=== PATIENT | female | born 1930 | race Caucasian/White ===

== ENCOUNTER 2017-07-17 13:54 | Emergency (ER) | payer MEDICAID, MEDICARE ==
[~2017-07-17] VITALS: Ht 162.6 cm; Wt 67.0 kg
[~2017-07-17 13:54] MED LIST: BACT800T5 PO; PHEN1TAB49 PO; PRAV40TA PO; ST JTAB PO
[2017-07-17 13:59] VITALS: BP 147/77; PULSE 90; RESP 16; TEMP 98.1; O2SAT 96
[2017-07-17] MEDS ORDERED: ASPI81CH6 CHEW (14:15)
[2017-07-17] MEDS ORDERED: ALEV220T14 PO (14:15)
[2017-07-17] MEDS ORDERED: PRAV40TA2 PO (14:15)
[2017-07-17 14:24] LABS: BLOOD, URINE MOD (NEG); GLUCOSE,URINE NEG (NEG); KETONE, URINE NEG (NEG); NITRITE,URINE POS (NEG)
[2017-07-17 14:36] LABS: METHOD OF COLLECTION VOIDED; URINE COLOR YELLOW (YELLW/STRAW); WBC, URINE INNUM /hpf (0-5)
[2017-07-17 14:37] LABS: BACTERIA, URINE MANY /hpf; COMMENT (UR) CULTURE INDICATED; CULTURE IF INDICATED CULTURE INDICATED; RBC, URINE 0-3 /hpf (0-3); SQUAMOUS EPITHELIAL CELL URINE >8 /hpf (0-5)
[2017-07-17] MEDS ORDERED: ZOFR4TAB3 SL (14:46)
[2017-07-17] MEDS ORDERED: BACT800T5 PO (14:46)
--- NOTE | 2017-07-17 14:46 | PD ---
HPI Chief Complaint: Complaint Time Seen by Provider: 14:22 Travel History International Travel<30 days: No Contact w/Intl Traveler<30days: No Traveled to known affect area: No History of Present Illness HPI This 87-year-old female is complaining of right flank pain. She's been having the pain for about a day. She has a history of urinary tract infections. She is not aware of fever. She has had some nausea. There has not been any vomiting or diarrhea. She has no numbness or tingling PFSH Past Medical History Arthritis: Yes Blood Disorders: No Anxiety: No Depression: No Cancer: No High Cholesterol: Yes Diabetes: No Diminished Hearing: Yes Genitourinary: No Implanted Vascular Access Dvce: No Musculoskeletal: Yes Neurologic: Yes Psychiatric: No Reproductive: No Respiratory: No Thyroid Disease: No Tetanus Vaccination: Unknown ?: Not Menopausal: Yes Past Surgical History Gynecologic Surgery: Yes (HYSTERECTOMY) Hysterectomy: Yes Other Surgery: Yes (ENDARTECTOMY) Social History Alcohol Use: No Tobacco Use: No Substance Use: No Allergies-Medications (Allergen,Severity, Reaction): Coded Allergies: No Known Allergies (Verified Adverse Reaction, Unknown, 07/17/17) Reported Meds & Prescriptions Reported Meds & Active Scripts Active Reported Aleve Arthritis (Naproxen Sodium) 220 Mg Tab 220 Mg PO BID Pravastatin 40 Mg Tab 40 Mg PO DAILY Aspirin Low Dose (Aspirin) 81 Mg Chew 81 Mg CHEW DAILY Review of Systems General / Constitutional: No: Fever, Chills Eyes: No: Diploplia, Blurred Vision HENT: No: Headaches, Vertigo Respiratory: No: Cough, Shortness of Breath Gastrointestinal: Positive: Nausea, No: Vomiting, Diarrhea Genitourinary: Positive: Urgency, Frequency, Flank Pain Musculoskeletal: No: Myalgias, Arthralgias Skin: No Rash, No Itching Endocrine: No: Heat Intolerance, Cold Intolerance Hematologic/Lymphatic: No: Easy Bruising Physical Exam Narrative GENERAL: Well-developed female SKIN: Focused skin assessment warm/dry. HEAD: Atraumatic. Normocephalic. EYES: Pupils equal and round. No scleral icterus. No injection or drainage. ENT: No nasal bleeding or discharge. Mucous membranes pink and moist. NECK: Trachea midline. No JVD. CARDIOVASCULAR: Regular rate and rhythm. No murmur appreciated. RESPIRATORY: No accessory muscle use. Clear to auscultation. Breath sounds equal bilaterally. GASTROINTESTINAL: Abdomen soft, non-tender, nondistended. Hepatic and splenic margins not palpable. There is some right CVA tenderness NEUROLOGICAL: Awake and alert. No obvious cranial nerve deficits. Motor grossly within normal limits. Normal speech. PSYCHIATRIC: Appropriate mood and affect; insight and judgment normal. Data Data Last Documented VS Vital Signs Date Time Temp Pulse Resp B/P (MAP) Pulse Ox O2 Delivery O2 Flow Rate FiO2 07/17/17 14:12 16 07/17/17 13:59 98.1 90 147/77 (100) 96 Orders Orders Urinalysis - C+S If Indicated (07/17/17 14:03) Urine Culture (07/17/17 14:07) Labs Laboratory Tests Test 07/17/17 14:07 Urine Collection Type VOIDED Urine Color YELLOW Urine Turbidity CLEAR Urine pH 6.0 Urine Specific [place] 1.023 Urine Protein TRACE mg/dL Urine Glucose (UA) NEG mg/dL Urine Ketones NEG mg/dL Urine Occult Blood MOD Urine Nitrite POS Urine Bilirubin NEG Urine Leukocyte Esterase MOD Urine RBC 0-3 /hpf Urine WBC INNUM /hpf Urine WBC Clumps FEW Urine Squamous Epithelial Cells >8 /hpf Urine Bacteria MANY /hpf Microscopic Urinalysis Comment CULTURE INDICATED MDM Medical Decision Making Medical Screen Exam Complete: Yes Emergency Medical Condition: Yes Medical Record Reviewed: Yes Differential Diagnosis Differential includes musculoskeletal pain, UTI, renal colic Narrative Course Urine shows innumerable white cells with minimal red cells consistent with urinary tract infection Diagnosis Primary Impression: Urinary tract infection Qualified Codes: N39.0 - Urinary tract infection, site not specified Scripts Ondansetron Odt (Zofran Odt) 4 Mg Tab 4 MG SL Q6HR Y for Nausea/Vomiting, #6 TAB 0 Refills Prov: Rainer Johnson MD 07/17/17 Sulfamethoxazole-Trimethoprim (Bactrim DS) 800-160 Mg Tab 1 TAB PO BID for Infection, #20 TAB 0 Refills Prov: Rainer Johnson MD 07/17/17 Disposition: 01 DISCHARGE HOME Condition: Stable Rainer Johnson MD Jul 17, 2017 14:46
== END 2017-07-17 15:00 | disposition home or self-care (01) ==
LOC: PHED 13:54
DX: N39.0 Urinary tract infection, site not specified (principal); B96.20 Unspecified Escherichia coli [E. coli] as the cause of diseases classified elsewhere; E78.00 Pure hypercholesterolemia, unspecified
CPT/HCPCS: 81001; 87077; 87086; 87186; 99284

== ENCOUNTER 2017-07-22 14:15 | Emergency (ER) | payer MEDICARE ==
[~2017-07-22] VITALS: Ht 165.1 cm; Wt 68.0 kg
[~2017-07-22 14:15] MED LIST changes: +ALEV220T14 PO; +ASPI81CH6 CHEW; -PHEN1TAB49 PO; -PRAV40TA PO; +PRAV40TA2 PO; -ST JTAB PO; +ZOFR4TAB3 SL
[2017-07-22 14:27] VITALS: BP 161/76; PULSE 80; RESP 16; TEMP 98.1; O2SAT 96
[2017-07-22] MEDS ORDERED: PRED20 PO (15:03)
[2017-07-22] MEDS ORDERED: ACYC800T PO (15:03)
--- NOTE | 2017-07-22 15:03 | PD ---
Data Data Last Documented VS Orders Orders Ed Discharge Order (07/22/17 15:04) MDM Supervised Visit with BRITNEY: Yes Narrative Course I, Dr. Rosa, have reviewed the advance practice practitioner's documentation and am in agreement, met with the patient face to face, made the diagnosis, and the medical decision making was done by me. *My assessment and Findings: Patient seen and examined by me in addition to Hanh RED. Fairly classic shingles eruption on the right flank, fortunately for the patient and his not painful for her. We placed on prednisone and acyclovir. Diagnosis Primary Impression: Shingles rash Med/Other Pt SpecificInfo: Prescription(s) given Scripts Prednisone (Prednisone) 20 Mg Tab 60 MG PO DAILY for 5 Days, #15 TAB 0 Refills Prov: Augie Rosa MD 07/22/17 Acyclovir (Acyclovir) 800 Mg Tab 800 MG PO 5 TIMES A DAY for Mgmt Viral Infection for 7 Days, TAB 0 Refills Prov: Augie Rosa MD 07/22/17 Disposition: 01 DISCHARGE HOME Condition: Stable Augie Rosa MD Jul 22, 2017 15:03
--- NOTE | 2017-07-22 15:05 | PD ---
HPI Chief Complaint: Musculoskeletal Complaint Time Seen by Provider: 14:34 Travel History International Travel<30 days: No Contact w/Intl Traveler<30days: No Traveled to known affect area: No History of Present Illness HPI 87-year-old female presents emergency department for evaluation of a rash to her lower back area. She states the rash is first noticed yesterday. She denies any pain associated with the rash. She denies any fever, chills, malaise , abdominal pain, nausea, vomiting, diarrhea. She denies any history of shingles. PFSH Past Medical History Arthritis: Yes Blood Disorders: No Anxiety: No Depression: No Cancer: No High Cholesterol: Yes Diabetes: No Diminished Hearing: Yes Genitourinary: No Implanted Vascular Access Dvce: No Musculoskeletal: Yes Neurologic: Yes Psychiatric: No Reproductive: No Respiratory: No Thyroid Disease: No Influenza Vaccination: No Menopausal: Yes Past Surgical History Gynecologic Surgery: Yes (HYSTERECTOMY) Hysterectomy: Yes Other Surgery: Yes (ENDARTECTOMY) Social History Alcohol Use: No Tobacco Use: No Substance Use: No Allergies-Medications (Allergen,Severity, Reaction): Coded Allergies: No Known Allergies (Verified Adverse Reaction, Unknown, 07/22/17) Reported Meds & Prescriptions Reported Meds & Active Scripts Active Prednisone 20 Mg Tab 60 Mg PO DAILY 5 Days Acyclovir 800 Mg Tab 800 Mg PO 5 TIMES A DAY 7 Days Zofran Odt (Ondansetron Odt) 4 Mg Tab 4 Mg SL Q6HR PRN Bactrim DS (Sulfamethoxazole-Trimethoprim) 800-160 Mg Tab 1 Tab PO BID Reported Aleve Arthritis (Naproxen Sodium) 220 Mg Tab 220 Mg PO BID Aspirin Low Dose (Aspirin) 81 Mg Chew 81 Mg CHEW DAILY Review of Systems Except as stated in HPI: all other systems reviewed are Neg Physical Exam Narrative GENERAL: Well-nourished, well-developed 87-year-old female patient in no acute distress. Nontoxic-appearing. Resting comfortably on the stretcher conversing with her daughter at bedside. SKIN: Right lateral blotchy erythematous vesicular rash noted extending from the L1-L5 dermatome and wrapping around to the right hip. HEAD: Normocephalic. Atraumatic. EYES: No scleral icterus. No injection or drainage. NECK: Supple, trachea midline. No JVD or lymphadenopathy. CARDIOVASCULAR: Regular rate and rhythm without murmurs, gallops, or rubs. RESPIRATORY: Breath sounds equal bilaterally. No accessory muscle use. GASTROINTESTINAL: Abdomen soft, non-tender, nondistended. MUSCULOSKELETAL: No cyanosis, or edema. BACK: Nontender without obvious deformity. No CVA tenderness. Data Data Last Documented VS Vital Signs Date Time Temp Pulse Resp B/P (MAP) Pulse Ox O2 Delivery O2 Flow Rate FiO2 07/22/17 14:27 98.1 80 16 161/76 (104) 96 Orders Orders Ed Discharge Order (07/22/17 15:04) [facility] Medical Decision Making Medical Screen Exam Complete: Yes Emergency Medical Condition: Yes Differential Diagnosis Differential diagnoses include but not limited to shingles, contact dermatitis, the lightest, dermatitis herpetiformis Narrative Course 87 year female presents emergency department for evaluation of a rash to her right lateral lower back extending from the L1 to L5 dermatome and wrapping around to the right hip. She states the rash started yesterday. Patient presents with her daughter. Patient denies any fever, chills, malaise. Patient is eating and drinking properly. Patient is well-appearing. Patient denies any pain associated with rash. The rash presents with classic shingles upon assessment and physical exam. Dr. Rosa was called to the patient's bedside to confirm my assessment due to the fact that the patient has no pain. Dr. Rosa agrees with diagnosis and the patient is discharged home with acyclovir and prednisone. Patient instructed to return the emergency Department with any worsening condition but otherwise follow up with her primary care. Diagnosis Primary Impression: Shingles Qualified Codes: B02.9 - Zoster without complications Referrals: Primary Care Physician Patient Instructions: General Instructions, Shingles (ED) Additional Instructions: Please return to emergency department if your symptoms return or worsen. Follow up with your primary care provider. Take medications as prescribed. Keep rash clean and dry. Med/Other Pt SpecificInfo: Prescription(s) given Scripts Prednisone (Prednisone) 20 Mg Tab 60 MG PO DAILY for 5 Days, #15 TAB 0 Refills Prov: Augie Rosa MD 07/22/17 Acyclovir (Acyclovir) 800 Mg Tab 800 MG PO 5 TIMES A DAY for Mgmt Viral Infection for 7 Days, TAB 0 Refills Prov: Augie Rosa MD 07/22/17 Disposition: 01 DISCHARGE HOME Condition: Stable Hanh Jeff Jul 22, 2017 15:05
== END 2017-07-22 15:15 | disposition home or self-care (01) ==
LOC: PHEFT 14:15
DX: B02.9 Zoster without complications (principal); E78.00 Pure hypercholesterolemia, unspecified
CPT/HCPCS: 99284

== ENCOUNTER 2017-08-05 13:33 | Emergency (ER) | payer MEDICARE ==
[~2017-08-05] VITALS: Ht 162.6 cm; Wt 75.0 kg
[~2017-08-05 13:33] MED LIST changes: +ACYC800T PO; -PRAV40TA2 PO; +PRED20 PO
[2017-08-05 13:41] VITALS: BP 144/68; PULSE 82; RESP 18; TEMP 97.9; O2SAT 96
--- NOTE | 2017-08-05 13:54 | PD ---
HPI Chief Complaint: Syncope/Near-Syncope Time Seen by Provider: 13:51 Travel History International Travel<30 days: No Contact w/Intl Traveler<30days: No Traveled to known affect area: No History of Present Illness HPI This 87-year-old female is brought by paramedics. She was in [facility] and her daughter. Her daughter says that she just started staring off and appeared to be staring through her. She appeared somewhat incoherent for a couple of minutes. The daughter was able to get her to the ground. She has since made a recovery and appears fairly normal now. She has a history of stroke in the past. She does take baby aspirin daily. She has had a left carotid endarterectomy she recently was treated for urinary tract infection. She has also developed some shingles in the right lower lumbar dermatome. She has been having some pain in the right leg going down to the knee. PFSH Past Medical History Arthritis: Yes Blood Disorders: No Anxiety: No Depression: No Cancer: No High Cholesterol: Yes Diabetes: No Diminished Hearing: Yes Genitourinary: No Implanted Vascular Access Dvce: No Musculoskeletal: Yes Neurologic: Yes Psychiatric: No Reproductive: No Respiratory: No Thyroid Disease: No Influenza Vaccination: No ?: Not Menopausal: Yes Past Surgical History Gynecologic Surgery: Yes (HYSTERECTOMY) Hysterectomy: Yes Other Surgery: Yes (ENDARTECTOMY) Social History Alcohol Use: No Tobacco Use: No Substance Use: No Allergies-Medications (Allergen,Severity, Reaction): Coded Allergies: No Known Allergies (Verified Adverse Reaction, Unknown, 08/05/17) Reported Meds & Prescriptions Reported Meds & Active Scripts Active Zofran Odt (Ondansetron Odt) 4 Mg Tab 4 Mg SL Q6HR PRN Reported Aleve Arthritis (Naproxen Sodium) 220 Mg Tab 220 Mg PO BID Aspirin Low Dose (Aspirin) 81 Mg Chew 81 Mg CHEW DAILY Review of Systems Except as stated in HPI: all other systems reviewed are Neg General / Constitutional: No: Fever, Chills Eyes: No: Diploplia HENT: No: Headaches Cardiovascular: No: Chest Pain or Discomfort, Palpitations Respiratory: No: Cough Gastrointestinal: No: Nausea, Vomiting Genitourinary: No: Urgency, Frequency Musculoskeletal: Positive: Myalgias, Pain (right leg) Skin: Positive Rash Neurologic: No: Weakness, Dizziness Physical Exam Narrative GENERAL: Well-developed female SKIN: Focused skin assessment warm/dry. There is a rash consistent with shingles in the right lower quadrant HEAD: Atraumatic. Normocephalic. EYES: Pupils equal and round. No scleral icterus. No injection or drainage. ENT: No nasal bleeding or discharge. Mucous membranes pink and moist. NECK: Trachea midline. No JVD. CARDIOVASCULAR: Regular rate and rhythm. No murmur appreciated. RESPIRATORY: No accessory muscle use. Clear to auscultation. Breath sounds equal bilaterally. GASTROINTESTINAL: Abdomen soft, non-tender, nondistended. Hepatic and splenic margins not palpable. MUSCULOSKELETAL: No obvious deformities. No clubbing. No cyanosis. No edema. NEUROLOGICAL: Awake and alert. No obvious cranial nerve deficits. Motor grossly within normal limits. Normal speech. PSYCHIATRIC: Appropriate mood and affect; insight and judgment normal. Data Data Last Documented VS Vital Signs Date Time Temp Pulse Resp B/P (MAP) Pulse Ox O2 Delivery O2 Flow Rate FiO2 08/05/17 14:52 73 16 125/86 (99) 97 Room Air 08/05/17 13:41 97.9 Orders Orders Electrocardiogram (08/05/17 13:51) Complete Blood Count With Diff (08/05/17 13:51) Comprehensive Metabolic Panel (08/05/17 13:51) Prothrombin Time / Inr (Pt) (08/05/17 13:51) Act Partial Throm Time (Ptt) (08/05/17 13:51) Urinalysis - C+S If Indicated (08/05/17 13:51) Magnesium (Mg) (08/05/17 13:51) Ct Brain W/O Iv Contrast(Rout) (08/05/17 13:51) Urine Culture (08/05/17 14:41) Labs Laboratory Tests Test 08/05/17 14:10 08/05/17 14:41 White Blood Count 8.6 TH/MM3 Red Blood Count 4.67 MIL/MM3 Hemoglobin 13.6 GM/DL Hematocrit 42.3 % Mean Corpuscular Volume 90.5 FL Mean Corpuscular Hemoglobin 29.2 PG Mean Corpuscular Hemoglobin Concent 32.2 % Red Cell Distribution Width 13.1 % Platelet Count 258 TH/MM3 Mean Platelet Volume 7.4 FL Neutrophils (%) (Auto) 72.4 % Lymphocytes (%) (Auto) 16.8 % Monocytes (%) (Auto) 8.2 % Eosinophils (%) (Auto) 1.8 % Basophils (%) (Auto) 0.8 % Neutrophils # (Auto) 6.1 TH/MM3 Lymphocytes # (Auto) 1.5 TH/MM3 Monocytes # (Auto) 0.7 TH/MM3 Eosinophils # (Auto) 0.2 TH/MM3 Basophils # (Auto) 0.1 TH/MM3 CBC Comment DIFF FINAL Differential Comment Prothrombin Time 10.5 SEC Prothromb Time International Ratio 1.0 RATIO Activated Partial Thromboplast Time 23.1 SEC Blood Urea Nitrogen 17 MG/DL Creatinine 0.84 MG/DL Random Glucose 112 MG/DL Total Protein 7.2 GM/DL Albumin 3.4 GM/DL Calcium Level 8.8 MG/DL Magnesium Level 2.3 MG/DL Alkaline Phosphatase 73 U/L Aspartate Amino Transf (AST/SGOT) 17 U/L Alanine Aminotransferase (ALT/SGPT) 15 U/L Total Bilirubin 0.9 MG/DL Sodium Level 139 MEQ/L Potassium Level 3.8 MEQ/L Chloride Level 104 MEQ/L Carbon Dioxide Level 26.6 MEQ/L Anion Gap 8 MEQ/L Estimat Glomerular Filtration Rate 64 ML/MIN Urine Collection Type CLEAN CATCH Urine Color YELLOW Urine Turbidity SLIGHTY CLOUDY Urine pH 5.5 Urine Specific [place] 1.026 Urine Protein 30 mg/dL Urine Glucose (UA) NEG mg/dL Urine Ketones 40 mg/dL Urine Occult Blood NEG Urine Nitrite NEG Urine Bilirubin NEG Urine Leukocyte Esterase MOD Urine RBC 0-3 /hpf Urine WBC 15-19 /hpf Urine Squamous Epithelial Cells 0-5 /hpf Urine Transitional Epithelial Cells 0-5 /hpf Urine Renal Epithelial Cells 0-5 /hpf Urine Amorphous Sediment FEW Urine Bacteria OCC /hpf Urine Fine Granular Casts 3-5 /lpf Microscopic Urinalysis Comment CULTURE INDICATED MDM Medical Decision Making Medical Screen Exam Complete: Yes Emergency Medical Condition: Yes Medical Record Reviewed: Yes Differential Diagnosis Differential includes near-syncope, TIA, atypical seizure Narrative Course CT is read as negative. There are no acute abnormalities. 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 Lab work shows persistent UTI was just 15-19 white cells. Review of previous culture shows she had Escherichia coli sensitive to all antibiotics. I will prescribe Macrobid. This may have been a TIA. The patient is declining admission home. He'll be released to follow up medical doctor Diagnosis Primary Impression: Urinary tract infection Qualified Codes: N30.00 - Acute cystitis without hematuria Additional Impression: TIA (transient ischemic attack) Disposition: 01 DISCHARGE HOME Condition: Stable Rainer Johnson MD Aug 05, 2017 13:54
[2017-08-05 14:15] LABS: AUTOMATED NEUTROPHIL # 6.1 TH/MM3 (1.8-7.7); BASOPHIL # 0.1 TH/MM3 (0-0.2); BASOPHIL % 0.8 % (0.0-2.0); EOSINOPHIL # 0.2 TH/MM3 (0-0.4); EOSINOPHIL % 1.8 % (0.0-4.0); HEMATOCRIT 42.3 % (35.0-46.0); HEMOGLOBIN 13.6 GM/DL (11.6-15.3); LYMPH % 16.8 % (9.0-44.0); LYMPHOCYTE # 1.5 TH/MM3 (1.0-4.8); MEAN CELL VOLUME 90.5 FL (80.0-100.0); MEAN CORPUSCULAR HEMOGLOBIN 29.2 PG (27.0-34.0); MEAN CORPUSCULAR HGB CONC 32.2 % (32.0-36.0); MEAN PLATELET VOLUME 7.4 FL (7.0-11.0); MONO % 8.2 % (0.0-8.0); MONOCYTE # 0.7 TH/MM3 (0-0.9); NEUT % 72.4 % (16.0-70.0); PLATELET COUNT 258 TH/MM3 (150-450); RED BLOOD COUNT 4.67 MIL/MM3 (4.00-5.30); RED CELL DISTRIBUTION WIDTH 13.1 % (11.6-17.2); WHITE BLOOD COUNT 8.6 TH/MM3 (4.0-11.0)
[2017-08-05 14:23] LABS: CHLORIDE 104 MEQ/L (98-107); SODIUM (NA) 139 MEQ/L (136-145)
[2017-08-05 14:27] LABS: ALBUMIN 3.4 GM/DL (3.4-5.0); BICARBONATE 26.6 MEQ/L (21.0-32.0); BLOOD UREA NITROGEN 17 MG/DL (7-18); CALCIUM 8.8 MG/DL (8.5-10.1); GLUCOSE,RANDOM 112 MG/DL (74-106); MAGNESIUM 2.3 MG/DL (1.5-2.5); PROTHROMBIN TIME - PATIENT 10.5 SEC (9.8-11.6)
[2017-08-05 14:30] LABS: ALT (GPT) 15 U/L (10-53); AST (GOT) 17 U/L (15-37); CREATININE 0.84 MG/DL (0.50-1.00); GLOMERULAR FILTRATION RATE 64 ML/MIN (>89)
[2017-08-05 14:32] LABS: TOTAL BILIRUBIN ADULT 0.9 MG/DL (0.2-1.0); TOTAL PROTEIN 7.2 GM/DL (6.4-8.2)
[2017-08-05 14:33] LABS: ALKALINE PHOSPHATASE 73 U/L (45-117)
[2017-08-05 14:46] LABS: BLOOD, URINE NEG (NEG); GLUCOSE,URINE NEG (NEG); KETONE, URINE 40 mg/dL (NEG); NITRITE,URINE NEG (NEG); PH, URINE 5.5 (5.0-8.5); URINE LEUKOCYTE ESTERASE MOD (NEG)
[2017-08-05 14:52] VITALS: BP 125/86; PULSE 73; RESP 16; O2SAT 97
[2017-08-05 14:59] LABS: BILIRUBIN, URINE NEG (NEG)
[2017-08-05 15:00] LABS: URINE COLOR YELLOW (YELLW/STRAW)
[2017-08-05 15:01] LABS: AMORPHOUS SEDIMENT, URINE FEW; BACTERIA, URINE OCC /hpf; RBC, URINE 0-3 /hpf (0-3); RENAL EPITHELIAL CELLS 0-5 /hpf; SQUAMOUS EPITHELIAL CELL URINE 0-5 /hpf (0-5); TRANSITIONAL EPI CELLS, URINE 0-5 /hpf; WBC, URINE 15-19 /hpf (0-5)
--- NOTE | 2017-08-05 15:26 | RADRPT ---
EXAM DATE/TIME: 08/05/2017 14:35 [place] COMPARISON: No previous studies available for comparison. INDICATIONS : Sudden onset of altered mental status. RADIATION DOSE: 59.84 CTDIvol (mGy) MEDICAL HISTORY : Stroke. SURGICAL HISTORY : Carotid endarterectomy. Hysterectomy. ENCOUNTER: Initial ACUITY: 1 day PAIN SCALE: 0/10 LOCATION: cranial TECHNIQUE: Multiple contiguous axial images were obtained of the head. Using automated exposure control and adj ustment of the mA and/or kV according to patient size, radiation dose was kept as low as reasonably a chievable to obtain optimal diagnostic quality images. DICOM format image data is available electro nically for review and comparison. FINDINGS: CEREBRUM: The ventricles are normal for age. There is an old lacunar infarct at the right thalamus. No evidenc e of midline shift, mass lesion, hemorrhage or acute infarction. No extra-axial fluid collections ar e seen. POSTERIOR FOSSA: The cerebellum and brainstem are intact. The 4th ventricle is midline. The cerebellopontine angle i s unremarkable. EXTRACRANIAL: The visualized portion of the orbits is intact. SKULL: The calvaria is intact. No evidence of skull fracture. CONCLUSION: 1. No acute abnormalities seen. 2. 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 Saúl Samuels MD on August 05, 2017 at 15:24 Board Certified Radiologist. This report was verified electronically.
[2017-08-05] MEDS ORDERED: MACR100C2 PO (15:36)
[2017-08-05] MEDS ORDERED: GABA300C5 PO (15:44)
--- NOTE | 2017-08-05 22:10 | EKG ---
Date Performed: 08/05/2017 Time Performed: 13:58:33 PTAGE: 87 years EKG: Sinus rhythm WITH SINUS ARRHYTHMIA POSSIBLE RIGHT VENTRICULAR CONDUCTION DELAY MODERATE VOLTAGE CRITERIA FOR LVH, CONSIDER NORMAL VARIANT BORDERLINE ECG PREVIOUS TRACING : 11/05/2009 16.11 Compared to the previous tracing, now with criteria for pos sible LVH DOCTOR: Geovani Stout Interpretating Date/Time 08/05/2017 22:08:30
== END 2017-08-05 15:56 | disposition home or self-care (01) ==
LOC: PHED 13:33
DX: N30.00 Acute cystitis without hematuria (principal); G45.9 Transient cerebral ischemic attack, unspecified; R94.31 Abnormal electrocardiogram [ECG] [EKG]; Z79.82 Long term (current) use of aspirin
CPT/HCPCS: 70450; 80053; 81001; 83735; 85025; 85610; 85730; 87086; 93005

== ENCOUNTER 2018-03-20 08:16 | Observation (INO) ==
--- NOTE | 2018-03-20 08:27 | ED ---
HPI General Chief complaint: Nausea/Vomiting/Diarrhea Stated complaint: Evac/General weakness Time Seen by Provider: 03/20/18 08:20 Source: EMS Mode of arrival: EMS Limitations: no limitations History of Present Illness HPI narrative: 88yo F was brought in by [facility] for generalized weakness. Pt called her daughter today because she was feeling weak and had nausea and vomiting. The dried vomit on patient's shirt appears dark brown/black. [place] sob while vomiting but not anymore. +Increased urinary frequency. Pt denies any fever, chest pain, abdominal pain, diarrhea, focal weakness or numbness. Related Data Home Medications Medication Instructions Recorded Confirmed aspirin [[id number]] 81 mg PO DAILY 03/20/18 03/20/18 pravastatin 40 mg PO HS 03/20/18 03/21/18 Allergies Allergy/AdvReac Type Severity Reaction Status Date / Time No Known Allergies AdvReac Unknown Uncoded 08/05/17 13:46 Review of Systems ROS: all other systems reviewed are negative [facility] Family History Family History Mother History of congestive heart failure Father History of prostate cancer Social History Social History Substance History: No History of Abuse Second Hand Smoke Exposure: No Smoking Status: Never smoker How Often Do You Have a Drink Containing Alcohol: Never Recent Travel in [facility] within the Last 8 Weeks: No Recent Out of Country Travel within the Last 8 Weeks: No Exam Narrative Exam Narrative: GENERAL: 88yo F in mild distresss. SKIN: Mildly diaphoretic. HEAD: Atraumatic. Normocephalic. EYES: Pupils equal and round. No scleral icterus. No injection or drainage. ENT: No nasal bleeding or discharge. Mucous membranes pink and moist. NECK: Trachea midline. + JVD. CARDIOVASCULAR: Mild tachycardia. +murmur appreciated. RESPIRATORY: + accessory muscle use. +Crackles right lower lung. GASTROINTESTINAL: Abdomen soft, non-tender, nondistended. MUSCULOSKELETAL: No obvious deformities. No clubbing. No cyanosis. No edema. NEUROLOGICAL: Awake and alert. No obvious cranial nerve deficits. Motor grossly within normal limits. Normal speech. PSYCHIATRIC: Appropriate mood and affect; insight and judgment normal. Course Initial Documented Vital Signs Temperature 99.4 F 03/20/18 08:25 Pulse Rate 104 H 03/20/18 08:25 Respiratory Rate 19 03/20/18 08:25 Blood Pressure 131/54 L 03/20/18 08:25 Pulse Oximetry 95 03/20/18 08:25 Last Documented Vital Signs Temperature 99.5 F 03/22/18 00:00 Pulse Rate 93 H 03/22/18 00:00 Respiratory Rate 18 03/22/18 00:00 Blood Pressure 145/77 H 03/22/18 00:00 Pulse Oximetry 96 03/22/18 00:00 Medical Decision Making MDM Narrative Medical decision making narrative: 88yo F with c/o nausea/vomiting and generalized weakness today. Pt is AAOx3 and has no focal neurologic deficits. Labs reviewed, no leukocytosis. H/H is 13.1/37.4. Troponin is elevated at 0.14. Pt has no chest pain but is diaphoretic and nauseous. Total bilirubin is elevated at 1.6. Mild hypokalemia at 3.2, replaced orally. BUN/creatinine ratio is elevated at 2 to 1. AST and alk phos elevated. No abdominal pain. Will observe overnight for elevated troponin and trend it. Differential Diagnosis Differential Diagnosis: GI bleed vs. dehydration vs. UTI vs. pneumonia vs. ACS Lab Data Result diagrams: 03/21/18 04:50 03/21/18 04:50 Lab Results 03/20/18 03/20/18 03/20/18 Range/Units 08:30 08:30 08:30 CBC w Diff Auto diff final WBC 11.5 H (4.0-11.0) th/mm3 RBC 4.23 (4.00-5.30) mil/mm3 Hgb 13.1 (11.6-15.3) gm/dL Hct 37.4 (35.0-46.0) % MCV 88.4 (80.0-100.0) fL MCH 30.8 (27.0-34.0) pg MCHC 34.9 (32.0-36.0) % RDW 14.1 (11.6-17.2) % Plt Count 193 (150-450) th/mm3 MPV 8.7 (7.0-11.0) fL Neut % (Auto) 90.0 H (16.0-70.0) % Lymph % (Auto) 2.7 L (9.0-44.0) % [place] % (Auto) 6.5 (0.0-8.0) % Eos % (Auto) 0.1 (0.0-4.0) % Baso % (Auto) 0.7 (0.0-2.0) % Neut # (Auto) 10.4 H (1.8-7.7) th/mm3 Lymph # (Auto) 0.3 L (1.0-4.8) th/mm3 [place]lee # (Auto) 0.7 (0.0-0.9) th/mm3 Eos # (Auto) 0.0 (0.0-0.4) th/mm3 Baso # (Auto) 0.1 (0.0-0.2) th/mm3 WBC Differential . Differential Comment . PT 11.1 (9.8-11.6) sec INR 1.1 Ratio APTT 21.1 L (24.3-30.1) sec Sodium 138 (136-145) meq/L Potassium 3.2 L (3.5-5.1) meq/L Chloride 107 (98-107) meq/L Carbon Dioxide 23.0 (21.0-32.0) meq/L Anion Gap 8 (5-15) meq/L BUN 20 H (7-18) mg/dL Creatinine 0.85 (0.50-1.00) mg/dL Estimated GFR 63 L (>89) mL/min POC Glucose (68-110) mg/dl Random Glucose 162 H (74-106) mg/dL Hemoglobin A1c (4.3-6.0) % Calcium 7.9 L (8.5-10.1) mg/dL Prot Corrected Calcium (8.5-10.1) mg/dL Magnesium 2.0 (1.5-2.5) mg/dL Total Bilirubin 1.6 H (0.2-1.0) mg/dL AST 89 H (15-37) U/L ALT 49 (10-53) U/L Alkaline Phosphatase 143 H (45-117) U/L Total Creatine Kinase (26-192) U/L Troponin I 0.14 H (0.02-0.05) ng/mL B-Natriuretic Peptide (0-100) pg/mL Total Protein 6.7 (6.4-8.2) g/dL Albumin 2.9 L (3.4-5.0) g/dL Triglycerides (42-150) mg/dL Cholesterol (120-200) mg/dL LDL Cholesterol, Calc (0-99) mg/dL HDL Cholesterol (40.0-60.0) mg/dL Cholesterol/HDL Ratio Ratio Urine Color (Yellw/Straw) Urine Clarity (Clear) Urine pH (5.0-8.5) Ur Specific [place] (1.002-1.035) Urine Protein (Neg-Trace) mg/dL Urine Glucose (UA) (Negative) mg/dL Urine Ketones (Negative) mg/dL Urine Occult Blood (Negative) Urine Nitrate (Negative) Urine Bilirubin (Negative) Urine Urobilinogen (Less than 2) mg/dL Ur Leukocyte Esterase (Negative) Urine RBC (0-3) /hpf Urine WBC (0-5) /hpf Urine WBC Clumps (None) Ur Squamous Epith Cells (0-5) /hpf Ur Transition Epith Cell (None) /hpf Urine Bacteria (None) /hpf Hyaline Casts (0-3) /lpf Granular Casts (None) /lpf WBC Casts (None) /lpf Micro UA Comment Urine Culture Comments 03/20/18 03/20/18 03/20/18 Range/Units 08:30 08:30 10:35 CBC w Diff WBC (4.0-11.0) th/mm3 RBC (4.00-5.30) mil/mm3 Hgb (11.6-15.3) gm/dL Hct (35.0-46.0) % MCV (80.0-100.0) fL MCH (27.0-34.0) pg MCHC (32.0-36.0) % RDW (11.6-17.2) % Plt Count (150-450) th/mm3 MPV (7.0-11.0) fL Neut % (Auto) (16.0-70.0) % Lymph % (Auto) (9.0-44.0) % [place]lee % (Auto) (0.0-8.0) % Eos % (Auto) (0.0-4.0) % Baso % (Auto) (0.0-2.0) % Neut # (Auto) (1.8-7.7) th/mm3 Lymph # (Auto) (1.0-4.8) th/mm3 [place]lee # (Auto) (0.0-0.9) th/mm3 Eos # (Auto) (0.0-0.4) th/mm3 Baso # (Auto) (0.0-0.2) th/mm3 WBC Differential Differential Comment PT (9.8-11.6) sec INR Ratio APTT (24.3-30.1) sec Sodium (136-145) meq/L Potassium (3.5-5.1) meq/L Chloride (98-107) meq/L Carbon Dioxide (21.0-32.0) meq/L Anion Gap (5-15) meq/L BUN (7-18) mg/dL Creatinine (0.50-1.00) mg/dL Estimated GFR (>89) mL/min POC Glucose (68-110) mg/dl Random Glucose (74-106) mg/dL Hemoglobin A1c 5.6 (4.3-6.0) % Calcium (8.5-10.1) mg/dL Prot Corrected Calcium (8.5-10.1) mg/dL Magnesium (1.5-2.5) mg/dL Total Bilirubin (0.2-1.0) mg/dL AST (15-37) U/L ALT (10-53) U/L Alkaline Phosphatase (45-117) U/L Total Creatine Kinase (26-192) U/L Troponin I (0.02-0.05) ng/mL B-Natriuretic Peptide 208 H (0-100) pg/mL Total Protein (6.4-8.2) g/dL Albumin (3.4-5.0) g/dL Triglycerides (42-150) mg/dL Cholesterol (120-200) mg/dL LDL Cholesterol, Calc (0-99) mg/dL HDL Cholesterol (40.0-60.0) mg/dL Cholesterol/HDL Ratio Ratio Urine Color Yellow (Yellw/Straw) Urine Clarity Cloudy H (Clear) Urine pH 5.5 (5.0-8.5) Ur Specific [place] 1.025 (1.002-1.035) Urine Protein 100 H (Neg-Trace) mg/dL Urine Glucose (UA) Negative (Negative) mg/dL Urine Ketones 15 H (Negative) mg/dL Urine Occult Blood Moderate H (Negative) Urine Nitrate Positive H (Negative) Urine Bilirubin Negative (Negative) Urine Urobilinogen 1.0 (Less than 2) mg/dL Ur Leukocyte Esterase Moderate H (Negative) Urine RBC 0-3 (0-3) /hpf Urine WBC 51-189 H (0-5) /hpf Urine WBC Clumps Moderate H (None) Ur Squamous Epith Cells 0-5 (0-5) /hpf Ur Transition Epith Cell 1-5 H (None) /hpf Urine Bacteria Many H (None) /hpf Hyaline Casts 0-3 (0-3) /lpf Granular Casts 1-3 H (None) /lpf WBC Casts 1-3 H (None) /lpf Micro UA Comment Culture indicated Urine Culture Comments Culture indicated 03/20/18 03/20/18 03/20/18 Range/Units 15:15 15:15 16:07 CBC w Diff Auto diff final WBC 11.0 (4.0-11.0) th/mm3 RBC 4.12 (4.00-5.30) mil/mm3 Hgb 12.6 (11.6-15.3) gm/dL Hct 37.8 (35.0-46.0) % MCV 91.8 (80.0-100.0) fL MCH 30.6 (27.0-34.0) pg MCHC 33.4 (32.0-36.0) % RDW 13.6 (11.6-17.2) % Plt Count 196 (150-450) th/mm3 MPV 8.2 (7.0-11.0) fL Neut % (Auto) 87.5 H (16.0-70.0) % Lymph % (Auto) 6.4 L (9.0-44.0) % [place]lee % (Auto) 5.8 (0.0-8.0) % Eos % (Auto) 0.2 (0.0-4.0) % Baso % (Auto) 0.1 (0.0-2.0) % Neut # (Auto) 9.7 H (1.8-7.7) th/mm3 Lymph # (Auto) 0.7 L (1.0-4.8) th/mm3 [place] # (Auto) 0.6 (0.0-0.9) th/mm3 Eos # (Auto) 0.0 (0.0-0.4) th/mm3 Baso # (Auto) 0.0 (0.0-0.2) th/mm3 WBC Differential . Differential Comment . PT (9.8-11.6) sec INR Ratio APTT (24.3-30.1) sec Sodium (136-145) meq/L Potassium (3.5-5.1) meq/L Chloride (98-107) meq/L Carbon Dioxide (21.0-32.0) meq/L Anion Gap (5-15) meq/L BUN (7-18) mg/dL Creatinine (0.50-1.00) mg/dL Estimated GFR (>89) mL/min POC Glucose 153 H (68-110) mg/dl Random Glucose (74-106) mg/dL Hemoglobin A1c (4.3-6.0) % Calcium (8.5-10.1) mg/dL Prot Corrected Calcium (8.5-10.1) mg/dL Magnesium (1.5-2.5) mg/dL Total Bilirubin (0.2-1.0) mg/dL AST (15-37) U/L ALT (10-53) U/L Alkaline Phosphatase (45-117) U/L Total Creatine Kinase 66 (26-192) U/L Troponin I 0.14 H (0.02-0.05) ng/mL B-Natriuretic Peptide (0-100) pg/mL Total Protein (6.4-8.2) g/dL Albumin (3.4-5.0) g/dL Triglycerides (42-150) mg/dL Cholesterol (120-200) mg/dL LDL Cholesterol, Calc (0-99) mg/dL HDL Cholesterol (40.0-60.0) mg/dL Cholesterol/HDL Ratio Ratio Urine Color (Yellw/Straw) Urine Clarity (Clear) Urine pH (5.0-8.5) Ur Specific [place] (1.002-1.035) Urine Protein (Neg-Trace) mg/dL Urine Glucose (UA) (Negative) mg/dL Urine Ketones (Negative) mg/dL Urine Occult Blood (Negative) Urine Nitrate (Negative) Urine Bilirubin (Negative) Urine Urobilinogen (Less than 2) mg/dL Ur Leukocyte Esterase (Negative) Urine RBC (0-3) /hpf Urine WBC (0-5) /hpf Urine WBC Clumps (None) Ur Squamous Epith Cells (0-5) /hpf Ur Transition Epith Cell (None) /hpf Urine Bacteria (None) /hpf Hyaline Casts (0-3) /lpf Granular Casts (None) /lpf WBC Casts (None) /lpf Micro UA Comment Urine Culture Comments 03/20/18 03/21/18 03/21/18 Range/Units 21:10 04:50 04:50 CBC w Diff Auto diff final WBC 8.0 (4.0-11.0) th/mm3 RBC 3.80 L (4.00-5.30) mil/mm3 Hgb 11.6 (11.6-15.3) gm/dL Hct 34.8 L (35.0-46.0) % MCV 91.6 (80.0-100.0) fL MCH 30.4 (27.0-34.0) pg MCHC 33.2 (32.0-36.0) % RDW 13.9 (11.6-17.2) % Plt Count 170 (150-450) th/mm3 MPV 9.7 (7.0-11.0) fL Neut % (Auto) 77.3 H (16.0-70.0) % Lymph % (Auto) 10.0 (9.0-44.0) % [place] % (Auto) 11.5 H (0.0-8.0) % Eos % (Auto) 0.6 (0.0-4.0) % Baso % (Auto) 0.6 (0.0-2.0) % Neut # (Auto) 6.3 (1.8-7.7) th/mm3 Lymph # (Auto) 0.8 L (1.0-4.8) th/mm3 [place] # (Auto) 0.9 (0.0-0.9) th/mm3 Eos # (Auto) 0.0 (0.0-0.4) th/mm3 Baso # (Auto) 0.0 (0.0-0.2) th/mm3 WBC Differential . Differential Comment . PT (9.8-11.6) sec INR Ratio APTT (24.3-30.1) sec Sodium 141 (136-145) meq/L Potassium 3.7 (3.5-5.1) meq/L Chloride 109 H (98-107) meq/L Carbon Dioxide 22.6 (21.0-32.0) meq/L Anion Gap 9 (5-15) meq/L BUN 17 (7-18) mg/dL Creatinine 0.72 (0.50-1.00) mg/dL Estimated GFR 77 L (>89) mL/min POC Glucose (68-110) mg/dl Random Glucose 99 (74-106) mg/dL Hemoglobin A1c (4.3-6.0) % Calcium 7.4 L* (8.5-10.1) mg/dL Prot Corrected Calcium 8.1 L (8.5-10.1) mg/dL Magnesium (1.5-2.5) mg/dL Total Bilirubin 0.8 (0.2-1.0) mg/dL AST 35 (15-37) U/L ALT 30 (10-53) U/L Alkaline Phosphatase 107 (45-117) U/L Total Creatine Kinase 71 (26-192) U/L Troponin I 0.08 H (0.02-0.05) ng/mL B-Natriuretic Peptide (0-100) pg/mL Total Protein 5.8 L D (6.4-8.2) g/dL Albumin 2.5 L (3.4-5.0) g/dL Triglycerides 77 (42-150) mg/dL Cholesterol 106 L (120-200) mg/dL LDL Cholesterol, Calc 51 (0-99) mg/dL HDL Cholesterol 40.1 (40.0-60.0) mg/dL Cholesterol/HDL Ratio 2.64 Ratio Urine Color (Yellw/Straw) Urine Clarity (Clear) Urine pH (5.0-8.5) Ur Specific [place] (1.002-1.035) Urine Protein (Neg-Trace) mg/dL Urine Glucose (UA) (Negative) mg/dL Urine Ketones (Negative) mg/dL Urine Occult Blood (Negative) Urine Nitrate (Negative) Urine Bilirubin (Negative) Urine Urobilinogen (Less than 2) mg/dL Ur Leukocyte Esterase (Negative) Urine RBC (0-3) /hpf Urine WBC (0-5) /hpf Urine WBC Clumps (None) Ur Squamous Epith Cells (0-5) /hpf Ur Transition Epith Cell (None) /hpf Urine Bacteria (None) /hpf Hyaline Casts (0-3) /lpf Granular Casts (None) /lpf WBC Casts (None) /lpf Micro UA Comment Urine Culture Comments 03/21/18 Range/Units 07:44 CBC w Diff WBC (4.0-11.0) th/mm3 RBC (4.00-5.30) mil/mm3 Hgb (11.6-15.3) gm/dL Hct (35.0-46.0) % MCV (80.0-100.0) fL MCH (27.0-34.0) pg MCHC (32.0-36.0) % RDW (11.6-17.2) % Plt Count (150-450) th/mm3 MPV (7.0-11.0) fL Neut % (Auto) (16.0-70.0) % Lymph % (Auto) (9.0-44.0) % [place]lee % (Auto) (0.0-8.0) % Eos % (Auto) (0.0-4.0) % Baso % (Auto) (0.0-2.0) % Neut # (Auto) (1.8-7.7) th/mm3 Lymph # (Auto) (1.0-4.8) th/mm3 [place] # (Auto) (0.0-0.9) th/mm3 Eos # (Auto) (0.0-0.4) th/mm3 Baso # (Auto) (0.0-0.2) th/mm3 WBC Differential Differential Comment PT (9.8-11.6) sec INR Ratio APTT (24.3-30.1) sec Sodium (136-145) meq/L Potassium (3.5-5.1) meq/L Chloride (98-107) meq/L Carbon Dioxide (21.0-32.0) meq/L Anion Gap (5-15) meq/L BUN (7-18) mg/dL Creatinine (0.50-1.00) mg/dL Estimated GFR (>89) mL/min POC Glucose 120 H (68-110) mg/dl Random Glucose (74-106) mg/dL Hemoglobin A1c (4.3-6.0) % Calcium (8.5-10.1) mg/dL Prot Corrected Calcium (8.5-10.1) mg/dL Magnesium (1.5-2.5) mg/dL Total Bilirubin (0.2-1.0) mg/dL AST (15-37) U/L ALT (10-53) U/L Alkaline Phosphatase (45-117) U/L Total Creatine Kinase (26-192) U/L Troponin I (0.02-0.05) ng/mL B-Natriuretic Peptide (0-100) pg/mL Total Protein (6.4-8.2) g/dL Albumin (3.4-5.0) g/dL Triglycerides (42-150) mg/dL Cholesterol (120-200) mg/dL LDL Cholesterol, Calc (0-99) mg/dL HDL Cholesterol (40.0-60.0) mg/dL Cholesterol/HDL Ratio Ratio Urine Color (Yellw/Straw) Urine Clarity (Clear) Urine pH (5.0-8.5) Ur Specific [place] (1.002-1.035) Urine Protein (Neg-Trace) mg/dL Urine Glucose (UA) (Negative) mg/dL Urine Ketones (Negative) mg/dL Urine Occult Blood (Negative) Urine Nitrate (Negative) Urine Bilirubin (Negative) Urine Urobilinogen (Less than 2) mg/dL Ur Leukocyte Esterase (Negative) Urine RBC (0-3) /hpf Urine WBC (0-5) /hpf Urine WBC Clumps (None) Ur Squamous Epith Cells (0-5) /hpf Ur Transition Epith Cell (None) /hpf Urine Bacteria (None) /hpf Hyaline Casts (0-3) /lpf Granular Casts (None) /lpf WBC Casts (None) /lpf Micro UA Comment Urine Culture Comments Imaging Data Radiologist's impression: Chest X-Ray 03/20/18 08:20 CONCLUSION: No acute disease ECG Data EKG Prior to Arrival: No Attestation: I personally reviewed and interpreted this ECG as follows: Interpretation: NSR 93bpm. LAD. SD interval 163ms. No significant ST elevation or depression. Discharge Plan Discharge Disposition Patient Disposition: 30 Still Patient Discharge Details Diagnosis: Elevated troponin Physicians Team ED Provider: Fani Hamilton Primary Care Provider: Adry Power Attending Provider: Erik Garcia Discharge Interventions Interventions: ED Discharge Assessment Last Done: 03/20/18 10:10 Vital Signs Last Done: 03/20/18 09:31 Status ED Status: Left Department Discharge Information Discharge Date/Time: 03/20/18 10:10
[2018-03-20 08:42] LABS: Baso # (Auto) 0.1 th/mm3 (0.0-0.2); Baso % (Auto) 0.7 % (0.0-2.0); Eos % (Auto) 0.1 % (0.0-4.0); Hematocrit 37.4 % (35.0-46.0); Hemoglobin 13.1 gm/dL (11.6-15.3); Lymph # (Auto) 0.3 th/mm3 (1.0-4.8); Lymph % (Auto) 2.7 % (9.0-44.0); Mean Corpuscular HGB Conc 34.9 % (32.0-36.0); Mean Corpuscular Hemoglobin 30.8 pg (27.0-34.0); Mean Corpuscular Volume 88.4 fL (80.0-100.0); Mean Platelet Volume 8.7 fL (7.0-11.0); Mono # (Auto) 0.7 th/mm3 (0.0-0.9); Mono % (Auto) 6.5 % (0.0-8.0); Neut # (Auto) 10.4 th/mm3 (1.8-7.7); Platelet Count 193 th/mm3 (150-450); Red Blood Count 4.23 mil/mm3 (4.00-5.30); Red Cell Distribution Width 14.1 % (11.6-17.2); White Blood Count 11.5 th/mm3 (4.0-11.0)
[2018-03-20 08:48] LABS: Chloride 107 meq/L (98-107); Potassium 3.2 meq/L (3.5-5.1); Sodium 138 meq/L (136-145)
--- NOTE | 2018-03-20 08:50 | XR ---
EXAM DATE: 03/20/2018 8:40 AM EDT AGE/SEX: 88 years / Female INDICATIONS: Weakness, nausea, vomiting. CLINICAL DATA: This is the patient's initial encounter. Patient reports that signs and symptoms have been present for 2 days and indicates a pain score of 0/10. MEDICAL/SURGICAL HISTORY: . CVA. Hyperlipemia. None. COMPARISON: No prior exams available for comparison. FINDINGS: Lungs are focally clear. No pleural effusion. Cardiac contours are satisfactory. CONCLUSION: No acute disease Electronically signed by: Saúl Bourne MD 03/20/2018 8:48 AM EDT
[2018-03-20 08:51] LABS: Calcium 7.9 mg/dL (8.5-10.1)
[2018-03-20 08:52] LABS: Activated Partial Thrombo Time 21.1 sec (24.3-30.1); Albumin 2.9 g/dL (3.4-5.0); Anion Gap 8 meq/L (5-15); Blood Urea Nitrogen 20 mg/dL (7-18); Glucose,Random 162 mg/dL (74-106); INR 1.1 Ratio; Prothrombin Time 11.1 sec (9.8-11.6)
[2018-03-20 08:55] LABS: Alanine Aminotransferase 49 U/L (10-53); Aspartate Aminotransferase 89 U/L (15-37); Glomerular Filtration Rate 63 mL/min (>89)
[2018-03-20 08:57] LABS: Total Protein 6.7 g/dL (6.4-8.2)
[2018-03-20 08:58] LABS: Alkaline Phosphatase 143 U/L (45-117)
[2018-03-20 09:00] LABS: Troponin I 0.14 ng/mL (0.02-0.05)
[2018-03-20] MEDS ORDERED: Sodium Chlor 0.9% Inj 500 ML IV.SIG ONE (09:08)
[2018-03-20] MEDS ORDERED: Acetaminophen 325 MG Tablet PO PRN (10:25)
[2018-03-20 10:47] LABS: Bilirubin,Urine Negative (Negative); Clarity,Urine Cloudy (Clear); Color,Urine Yellow (Yellw/Straw); Glucose,Urine (UA) Negative (Negative); Leukocyte Esterase,Urine Moderate (Negative); Nitrite,Urine Positive (Negative); PH,Urine 5.5 (5.0-8.5); Specific Gravity,Urine 1.025 (1.002-1.035)
[2018-03-20 11:00] LABS: Bacteria,Urine Many /hpf; Squamous Epithelial Cell,Urine 0-5 /hpf (0-5); WBC,Urine 51-189 /hpf (0-5)
[2018-03-20 11:01] LABS: Hyaline Casts,Urine 0-3 /lpf (0-3); RBC,Urine 0-3 /hpf (0-3)
[2018-03-20] MEDS ORDERED: Dextrose 50% in Water 50 ML Vial IV.PUSH PRN (11:59)
[2018-03-20] MEDS ORDERED: Temazepam 15 MG Capsule PO PRN (12:00)
[2018-03-20] MEDS ORDERED: Senna/Docusate Sodium 8.6/50 MG Tablet PO PRN (12:00)
--- NOTE | 2018-03-20 12:43 | ECG ---
Date Performed: 03/20/2018 Time Performed: 08:44:14 PTAGE: 88 years EKG: Sinus rhythm POSSIBLE RIGHT VENTRICULAR CONDUCTION DELAY BORDERLINE ECG No significant change from prior electroc ardiogram. PREVIOUS TRACING : 08/05/2017 13.58 DOCTOR: Arsh Wakefield Interpretating Date/Time 03/20/2018 12:42:01
[2018-03-20] MEDS: Insulin NovoLOG Aspart Correctional Sugar Inj SQ SCH ×2 (12:52→16:07)
--- NOTE | 2018-03-20 12:53 | P.HP ---
History of Present Illness Primary Care Physician: Adry Power MD Chief Complaint: Nausea, vomiting History of Present Illness: 88-year-old female with known history of hyperlipidemia, history of CVA who presented to the hospital because of nausea, vomiting. Patient states that she is in normal state of health until 2 days ago when she started developing profound shaking intermittently. She thought it was from a bad dream and then this morning when she got up at approximate 5 AM she still had the profound shaking. She called her daughter and she asked her to come over. Before the patient's daughter got there the patient had an episode of nausea and vomiting. She did not have any episodes of chest pain, shortness of breath , abdominal pain, diaphoresis. After she vomited she sat on the ground and then her daughter showed up. Her daughter brought her to the hospital for evaluation and patient was found to have some equivocally elevated troponin. Some electrolyte derangement. Rather significant urinary tract infection. Because of those reasons is recommended by the ER physician the patient be admitted for further evaluation and management. - Diagnosis (1) Rigors (2) Urinary tract infection (3) Troponin level elevated (4) Nausea & vomiting Review of Systems All other systems reviewed negative except as stated in HPI Gastrointestinal: Reports nausea, Reports vomiting Neurologic: Reports tremor(s) PMFSH - History History Provided By: Patient - Medical History Medical History: Medical History (Last Updated 03/20/18 @ 11:38 by MERCED Yeager) CVA (cerebral vascular accident) History of shingles Hyperlipemia - Surgical History Surgical History: Surgical History (Last Updated 03/20/18 @ 11:43 by MERCED Yeager) History of cataract surgery History of endarterectomy History of hysterectomy - Family History Family History: Family History (Last Updated 03/20/18 @ 11:41 by MERCED Yeager) Mother History of congestive heart failure Father History of prostate cancer - Tobacco History Second Hand Smoke Exposure: No Smoking Status: Never smoker - Alcohol History How Often Do You Have a Drink Containing Alcohol: Never - Substance Use History Substance History: No History of Abuse - Travel History Recent Travel in the [place] Within the Last 8 Weeks: No Recent Travel Out of the Country Within the Last 8 Weeks: No - Immunization History Tetanus Immunization: Unsure Hx Influenza Vaccine This Season: No Medications and Allergies Active Medications: Active Medications Acetaminophen (Tylenol) 650 mg PO Q4H PRN PRN Reason: Temp > 100.4 Al Hydroxide/Mg Hydroxide (Milk Of Magnnate Liq) 30 ml PO Q12H PRN PRN Reason: Mild Constipation Aspirin (Ecotrin) 81 mg PO DAILY WILLIAN Dextrose (D50w Vial) 50 ml IV.PUSH UNSCH PRN PRN Reason: PER HYPOGLYCEMIA PROTOCOL Glucagon (Glucagon Inj) 1 mg OTHER PRN PRN PRN Reason: for Hypoglycemia Protocol Ceftriaxone Sodium 1,000 mg/ (Sodium Chloride) 100 mls @ 200 mls/hr IV.SIG Q24H WILLIAN Potassium Chloride/Sodium Chloride (Ns + Kcl 20 Meq Inj) 1,000 mls @ 84 mls/hr IV.CONT .[id number] WILLIAN Insulin Aspart (Novolog Insulin Correctional Sugar Inj) 0 unit SQ ACHS WILLIAN; Protocol Ondansetron HCl (Zofran Inj) 4 mg IV.PUSH Q6H PRN PRN Reason: NAUSEA Senna/Docusate Sodium (Annette-Colace) 1 tab PO BID PRN PRN Reason: CONSTIPATION Sodium Chloride (Ns Flush) 2 ml IV.FLUSH PRN PRN PRN Reason: FLUSH AFTER USING IV ACCESS Temazepam (Restoril) 15 mg PO HS PRN PRN Reason: INSOMNIA Allergies Allergy/AdvReac Type Severity Reaction Status Date / Time No Known Allergies AdvReac Unknown Uncoded 08/05/17 13:46 Home Medications Medication Instructions Recorded Confirmed Type aspirin [Aspir-81] 81 mg PO DAILY 03/20/18 03/20/18 History pravastatin 0 03/20/18 History Exam Vital signs: Vital Signs 03/20/18 08:25 03/20/18 08:30 03/20/18 09:31 Temperature 99.4 F Pulse Rate 104 H 100 H 90 Respiratory Rate 19 17 Blood Pressure 131/54 L 98/51 L Pulse Oximetry 95 93 L 03/20/18 11:26 03/20/18 12:00 Temperature 96.9 F L Pulse Rate 98 H 79 Respiratory Rate 16 Blood Pressure 105/55 L Pulse Oximetry 92 L Intake & Output 03/19/18 03/20/18 03/20/18 18:59 06:59 18:59 Intake Total 500 / 500 Balance 500 / 500 Weight 67.6 kg Intake: IV 500 / 500 NS Inj 500 ML @ Wide Open IV. 500 / 500 SIG BOLUS ONE Rx#:[id number] Other: Weight On Admission 67.6 kg Narrative: GENERAL: Well-developed, well-nourished, in no acute distress. alert and orientated HEENT: Head is normocephalic without any lesions or masses noted. Facial features are symmetric. Eyes: Pupils equal round reactive to light. Extraocular muscles are intact. Conjunctivae were clear. Oropharyngeal: Pharynx without any erythema edema. Tongue is midline without deviation. Buccal mucosa is moist without any masses or lesions NECK: Supple without any masses. Trachea midline no deviation. No JVD, no bruits are appreciated CARDIAC: Regular rhythm, regular rate. S1/S2 are heard. 2/6 crescendo type murmur in the aortic region. No gallops or rubs. LUNGS: Clear to auscultation bilaterally. No wheeze, rhonchi or rales. No use of accessory muscles on inspiration or expiration. ABDOMEN: Soft, nontender. Nondistended. Bowel sounds heard in all 4 quadrants. No organomegaly or masses. Negative rebound, negative guarding EXTREMITIES: No edema, pulses are equal bilaterally. No cyanosis or clubbing NEUROLOGY: Mood and affect appear appropriate. Cranial nerves II through XII grossly intact. Muscle strength 5/5 in upper and lower extremities bilaterally. Deep tendon reflexes are 2+ in upper and lower extremities bilaterally. Results - Labs CBC & Chem 7: 03/20/18 08:30 03/20/18 08:30 Labs: Laboratory Results - last 24 hr 03/20/18 03/20/18 03/20/18 08:30 08:30 08:30 CBC w Diff Auto diff final WBC 11.5 H RBC 4.23 Hgb 13.1 Hct 37.4 MCV 88.4 MCH 30.8 MCHC 34.9 RDW 14.1 Plt Count 193 MPV 8.7 Neut % (Auto) 90.0 H Lymph % (Auto) 2.7 L [place] % (Auto) 6.5 Eos % (Auto) 0.1 Baso % (Auto) 0.7 Neut # (Auto) 10.4 H Lymph # (Auto) 0.3 L [place] # (Auto) 0.7 Eos # (Auto) 0.0 Baso # (Auto) 0.1 WBC Differential . Differential Comment . PT 11.1 INR 1.1 APTT 21.1 L Sodium 138 Potassium 3.2 L Chloride 107 Carbon Dioxide 23.0 Anion Gap 8 BUN 20 H Creatinine 0.85 Estimated GFR 63 L Random Glucose 162 H Calcium 7.9 L Magnesium 2.0 Total Bilirubin 1.6 H AST 89 H ALT 49 Alkaline Phosphatase 143 H Troponin I 0.14 H B-Natriuretic Peptide Total Protein 6.7 Albumin 2.9 L Urine Color Urine Clarity Urine pH Ur Specific [place] Urine Protein Urine Glucose (UA) Urine Ketones Urine Occult Blood Urine Nitrate Urine Bilirubin Urine Urobilinogen Ur Leukocyte Esterase Urine RBC Urine WBC Urine WBC Clumps Ur Squamous Epith Cells Ur Transition Epith Cell Urine Bacteria Hyaline Casts Granular Casts WBC Casts Micro UA Comment Urine Culture Comments 03/20/18 03/20/18 08:30 10:35 CBC w Diff WBC RBC Hgb Hct MCV MCH MCHC RDW Plt Count MPV Neut % (Auto) Lymph % (Auto) [place] % (Auto) Eos % (Auto) Baso % (Auto) Neut # (Auto) Lymph # (Auto) [place] # (Auto) Eos # (Auto) Baso # (Auto) WBC Differential Differential Comment PT INR APTT Sodium Potassium Chloride Carbon Dioxide Anion Gap BUN Creatinine Estimated GFR Random Glucose Calcium Magnesium Total Bilirubin AST ALT Alkaline Phosphatase Troponin I B-Natriuretic Peptide 208 H Total Protein Albumin Urine Color Yellow Urine Clarity Cloudy H Urine pH 5.5 Ur Specific [place] 1.025 Urine Protein 100 H Urine Glucose (UA) Negative Urine Ketones 15 H Urine Occult Blood Moderate H Urine Nitrate Positive H Urine Bilirubin Negative Urine Urobilinogen 1.0 Ur Leukocyte Esterase Moderate H Urine RBC 0-3 Urine WBC 51-189 H Urine WBC Clumps Moderate H Ur Squamous Epith Cells 0-5 Ur Transition Epith Cell 1-5 H Urine Bacteria Many H Hyaline Casts 0-3 Granular Casts 1-3 H WBC Casts 1-3 H Micro UA Comment Culture indicated Urine Culture Comments Culture indicated - Imaging Impressions Chest X-Ray 03/20/18 08:20 CONCLUSION: No acute disease Caprini VTE Risk Assessment Caprini VTE Risk Assessment: Moderate/High Risk (score >= 2) Caprini Risk Assessment Model: Point Value = 1 Point Value = 2 Point Value = 3 Point Value = 5 Age 41-60 Minor surgery BMI > 25 kg/m2 Swollen legs Varicose veins or History of unexplained or recurrent spontaneous Oral contraceptives or hormone replacement Sepsis (< 1 month) Serious lung disease, including pneumonia (< 1 month) Abnormal pulmonary function Acute myocardial infarction Congestive heart failure (< 1 month) History of inflammatory bowel disease Medical patient at bed rest Age 61-74 Arthroscopic surgery Major open surgery (> 45 min) Laparoscopic surgery (> 45 min) Malignancy Confined to bed (> 72 hours) Immobilizing plaster cast Central venous access Age >= 75 History of VTE Family history of VTE Factor V Leiden Prothrombin [id number] Lupus anticoagulant Anticardiolipin antibodies Elevated serum homocysteine Heparin-induced thrombocytopenia Other congenital or acquired thrombophilia Stroke (< 1 month) Elective arthroplasty Hip, pelvis, or leg fracture Acute spinal cord injury (< 1 month) Prophylaxis Regimen: Total Risk Factor Score Risk Level Prophylaxis Regimen 0-1 Low Early ambulation 2 Moderate Order ONE of the following: *Sequential Compression Device (SCD) *Heparin 5000 units SQ BID 3-4 Higher Order ONE of the following medications: *Heparin 5000 units SQ TID *Enoxaparin/Lovenox 40 mg SQ daily (WT < 150 kg, CrCl > 30 mL/min) *Enoxaparin/Lovenox 30 mg SQ daily (WT < 150 kg, CrCl > 10-29 mL/min) *Enoxaparin/Lovenox 30 mg SQ BID (WT < 150 kg, CrCl > 30 mL/min) AND/OR *Sequential Compression Device (SCD) 5 or more Highest Order ONE of the following medications: *Heparin 5000 units SQ TID (Preferred with Epidurals) *Enoxaparin/Lovenox 40 mg SQ daily (WT < 150 kg, CrCl > 30 mL/min) *Enoxaparin/Lovenox 30 mg SQ daily (WT < 150 kg, CrCl > 10-29 mL/min) *Enoxaparin/Lovenox 30 mg SQ BID (WT < 150 kg, CrCl > 30 mL/min) AND *Sequential Compression Device (SCD) Assessment and Plan - Assessment (1) Rigors Code(s): R68.89 - Other general symptoms and signs Status: Acute (2) Urinary tract infection Code(s): N39.0 - Urinary tract infection, site not specified Status: Acute (3) Troponin level elevated Code(s): R74.8 - Abnormal levels of other serum enzymes Status: Acute (4) Nausea & vomiting Code(s): R11.2 - Nausea with vomiting, unspecified Status: Acute - Plan Urinary tract infection -Possible early urosepsis, patient been having rigors, tachycardia, leukocytosis with left shift. -Start Rocephin 1 g IV every 24 hours -Follow urine culture for appropriate antibiotics Elevated troponin, -Unknown significance, patient is asymptomatic without any chest pain, lightheadedness, dizziness, diaphoresis, EKG with sinus rhythm without any changes. -Continue to trend cardiac enzymes, EKGs -Continue aspirin -Obtain lipid panel Electrolyte abnormality with hypokalemia -Continue monitor and replete as needed Hyperglycemia -Check hemoglobin A1c -Accu-Cheks sliding scale insulin Elevated liver enzymes, unknown significance -Monitor liver enzymes DVT prevention -Sequential compression devices
[2018-03-20 15:27] LABS: Baso % (Auto) 0.1 % (0.0-2.0); Eos % (Auto) 0.2 % (0.0-4.0); Hematocrit 37.8 % (35.0-46.0); Hemoglobin 12.6 gm/dL (11.6-15.3); Lymph # (Auto) 0.7 th/mm3 (1.0-4.8); Lymph % (Auto) 6.4 % (9.0-44.0); Mean Corpuscular HGB Conc 33.4 % (32.0-36.0); Mean Corpuscular Hemoglobin 30.6 pg (27.0-34.0); Mean Corpuscular Volume 91.8 fL (80.0-100.0); Mean Platelet Volume 8.2 fL (7.0-11.0); Mono # (Auto) 0.6 th/mm3 (0.0-0.9); Mono % (Auto) 5.8 % (0.0-8.0); Neut # (Auto) 9.7 th/mm3 (1.8-7.7); Neut % (Auto) 87.5 % (16.0-70.0); Platelet Count 196 th/mm3 (150-450); Red Blood Count 4.12 mil/mm3 (4.00-5.30); Red Cell Distribution Width 13.6 % (11.6-17.2)
[2018-03-20 15:43] LABS: Troponin I 0.14 ng/mL (0.02-0.05)
--- NOTE | 2018-03-20 16:27 | ECG ---
Date Performed: 03/20/2018 Time Performed: 15:05:19 PTAGE: 88 years EKG: Sinus rhythm NORMAL ECG PREVIOUS TRACING : 03/20/2018 08.44 No significant change from previous tracing noted. DOCTOR: Armando Shin Interpretating Date/Time 03/20/2018 16:26:22
[2018-03-20 17:18] LABS: Hemoglobin A1c 5.6 % (4.3-6.0)
[2018-03-20 21:59] LABS: Troponin I 0.08 ng/mL (0.02-0.05)
--- NOTE | 2018-03-20 22:13 | ECG ---
Date Performed: 03/20/2018 Time Performed: 21:04:07 PTAGE: 88 years EKG: SINUS TACHYCARDIA WITH OCCASIONAL SUPRAVENTRICULAR PREMATURE COMPLEXES POSSIBLE RIGHT VENTR ICULAR CONDUCTION DELAY ABNORMAL RHYTHM ECG PREVIOUS TRACING : 03/20/2018 15.05 No significant change from previous tracing noted. DOCTOR: Armando Shin Interpretating Date/Time 03/20/2018 22:11:59
[2018-03-21] MEDS: Insulin NovoLOG Aspart Correctional Sugar Inj SQ SCH ×2 (04:12→08:00)
[2018-03-21 06:10] LABS: Hematocrit 34.8 % (35.0-46.0); Hemoglobin 11.6 gm/dL (11.6-15.3); Mean Corpuscular HGB Conc 33.2 % (32.0-36.0); Mean Corpuscular Hemoglobin 30.4 pg (27.0-34.0); Mean Corpuscular Volume 91.6 fL (80.0-100.0); Mean Platelet Volume 9.7 fL (7.0-11.0); Platelet Count 170 th/mm3 (150-450); Red Cell Distribution Width 13.9 % (11.6-17.2)
[2018-03-21 06:11] LABS: Baso % (Auto) 0.6 % (0.0-2.0); Eos % (Auto) 0.6 % (0.0-4.0); Lymph # (Auto) 0.8 th/mm3 (1.0-4.8); Mono # (Auto) 0.9 th/mm3 (0.0-0.9); Mono % (Auto) 11.5 % (0.0-8.0); Neut # (Auto) 6.3 th/mm3 (1.8-7.7); Neut % (Auto) 77.3 % (16.0-70.0)
--- NOTE | 2018-03-21 10:05 | P.PN ---
Subjective Interval history: 88-year-old female who is seen and examined today for follow-up on urinary tract infection, elevated troponin. Patient very hard of hearing. Did discuss with patient and daughter at bedside. Daughter indicates patient had another episode of rigors last night. Discussed with him that the workup for her heart is unremarkable, no indications of any acute coronary event. Notified them that it would be beneficial to monitor the urine culture until final results so we can make sure she is on the appropriate antibiotic prior to discharge. Patient is not too happy about that, however she is in agreement. Vital signs are stable, patient remains afebrile. Physical Exam Vital signs: Vital Signs 03/20/18 11:26 03/20/18 12:00 03/20/18 15:54 Temperature 96.9 F L 98.0 F Pulse Rate 98 H 79 81 Respiratory Rate 16 16 Blood Pressure 105/55 L 102/52 L Pulse Oximetry 92 L 97 03/20/18 20:00 03/21/18 00:00 03/21/18 04:00 Temperature 99.8 F H 98.4 F 98.4 F Pulse Rate 110 H 102 H 87 Respiratory Rate 16 16 16 Blood Pressure 144/73 H 122/56 L 127/68 Pulse Oximetry 96 92 L 90 L 03/21/18 08:00 Temperature 98.1 F Pulse Rate 71 Respiratory Rate 18 Blood Pressure 124/61 Pulse Oximetry 96 Intake & Output 03/20/18 03/21/18 03/21/18 18:59 06:59 18:59 Intake Total 1320 / 1320 1200 / 1200 1000 / 1000 Balance 1320 / 1320 1200 / 1200 1000 / 1000 Weight 67.6 kg 67.6 kg Intake: IV 600 / 600 1000 / 1000 1000 / 1000 NS + KCl 20 mEq Inj 1,000 ML @ 1000 / 1000 1000 / 1000 84 mls/hr IV.CONT .[id number] WILLIAN Rx#:[id number] NS Inj 500 ML @ Wide Open IV. 500 / 500 SIG BOLUS ONE Rx#:[id number] Rocephin Inj 1,000 MG In NS Inj 100 / 100 100 ML @ 200 mls/hr IV.SIG Q24H WILLIAN Rx#:[id number] Oral 720 / 720 200 / 200 Other: # Voids 2 3 # Bowel Movements 0 Weight On Admission 67.6 kg Narrative: GENERAL: Well-developed, well-nourished, in no acute distress. alert and orientated HEENT: Head is normocephalic without any lesions or masses noted. Facial features are symmetric. Eyes: Extraocular muscles are intact. Conjunctivae were clear. NECK: Supple without any masses. Trachea midline no deviation. No JVD, CARDIAC: Regular rhythm, regular rate. S1/S2 are heard. 2/6 crescendo type murmur in the aortic region. No gallops or rubs. LUNGS: Clear to auscultation bilaterally. No wheeze, rhonchi or rales. No use of accessory muscles on inspiration or expiration. ABDOMEN: Soft, nontender. Nondistended. Bowel sounds heard in all 4 quadrants. No organomegaly or masses. Negative rebound, negative guarding EXTREMITIES: No edema, pulses are equal bilaterally. No cyanosis or clubbing NEUROLOGY: Mood and affect appear appropriate. Cranial nerves II through XII grossly intact. Moving all extremities, speech is clear Results - Labs CBC & Chem 7: 03/21/18 04:50 03/20/18 08:30 Laboratory Results - last 24 hr 03/20/18 03/20/18 03/20/18 08:30 10:35 15:15 CBC w Diff WBC RBC Hgb Hct MCV MCH MCHC RDW Plt Count MPV Neut % (Auto) Lymph % (Auto) [place] % (Auto) Eos % (Auto) Baso % (Auto) Neut # (Auto) Lymph # (Auto) [place] # (Auto) Eos # (Auto) Baso # (Auto) WBC Differential Differential Comment POC Glucose Hemoglobin A1c 5.6 Total Creatine Kinase 66 Troponin I 0.14 H Urine Color Yellow Urine Clarity Cloudy H Urine pH 5.5 Ur Specific [place] 1.025 Urine Protein 100 H Urine Glucose (UA) Negative Urine Ketones 15 H Urine Occult Blood Moderate H Urine Nitrate Positive H Urine Bilirubin Negative Urine Urobilinogen 1.0 Ur Leukocyte Esterase Moderate H Urine RBC 0-3 Urine WBC 51-189 H Urine WBC Clumps Moderate H Ur Squamous Epith Cells 0-5 Ur Transition Epith Cell 1-5 H Urine Bacteria Many H Hyaline Casts 0-3 Granular Casts 1-3 H WBC Casts 1-3 H Micro UA Comment Culture indicated Urine Culture Comments Culture indicated 03/20/18 03/20/18 03/20/18 15:15 16:07 21:10 CBC w Diff Auto diff final WBC 11.0 RBC 4.12 Hgb 12.6 Hct 37.8 MCV 91.8 MCH 30.6 MCHC 33.4 RDW 13.6 Plt Count 196 MPV 8.2 Neut % (Auto) 87.5 H Lymph % (Auto) 6.4 L [place] % (Auto) 5.8 Eos % (Auto) 0.2 Baso % (Auto) 0.1 Neut # (Auto) 9.7 H Lymph # (Auto) 0.7 L [place] # (Auto) 0.6 Eos # (Auto) 0.0 Baso # (Auto) 0.0 WBC Differential . Differential Comment . POC Glucose 153 H Hemoglobin A1c Total Creatine Kinase 71 Troponin I 0.08 H Urine Color Urine Clarity Urine pH Ur Specific [place] Urine Protein Urine Glucose (UA) Urine Ketones Urine Occult Blood Urine Nitrate Urine Bilirubin Urine Urobilinogen Ur Leukocyte Esterase Urine RBC Urine WBC Urine WBC Clumps Ur Squamous Epith Cells Ur Transition Epith Cell Urine Bacteria Hyaline Casts Granular Casts WBC Casts Micro UA Comment Urine Culture Comments 03/21/18 03/21/18 04:50 07:44 CBC w Diff Auto diff final WBC 8.0 RBC 3.80 L Hgb 11.6 Hct 34.8 L MCV 91.6 MCH 30.4 MCHC 33.2 RDW 13.9 Plt Count 170 MPV 9.7 Neut % (Auto) 77.3 H Lymph % (Auto) 10.0 [place] % (Auto) 11.5 H Eos % (Auto) 0.6 Baso % (Auto) 0.6 Neut # (Auto) 6.3 Lymph # (Auto) 0.8 L [place] # (Auto) 0.9 Eos # (Auto) 0.0 Baso # (Auto) 0.0 WBC Differential . Differential Comment . POC Glucose 120 H Hemoglobin A1c Total Creatine Kinase Troponin I Urine Color Urine Clarity Urine pH Ur Specific [place] Urine Protein Urine Glucose (UA) Urine Ketones Urine Occult Blood Urine Nitrate Urine Bilirubin Urine Urobilinogen Ur Leukocyte Esterase Urine RBC Urine WBC Urine WBC Clumps Ur Squamous Epith Cells Ur Transition Epith Cell Urine Bacteria Hyaline Casts Granular Casts WBC Casts Micro UA Comment Urine Culture Comments Assessment and Plan - Assessment (1) Rigors Code(s): R68.89 - Other general symptoms and signs Status: Acute (2) Urinary tract infection Code(s): N39.0 - Urinary tract infection, site not specified Status: Acute (3) Troponin level elevated Code(s): R74.8 - Abnormal levels of other serum enzymes Status: Acute (4) Nausea & vomiting Code(s): R11.2 - Nausea with vomiting, unspecified Status: Acute - Plan Urinary tract infection -Possible early urosepsis, patient been having rigors, tachycardia, leukocytosis with left shift. -Continue Rocephin 1 g IV every 24 hours -Follow urine culture for appropriate antibiotics Elevated troponin, -Unknown significance, patient is asymptomatic without any chest pain, lightheadedness, dizziness, diaphoresis, EKG with sinus rhythm without any changes. -Cardiac enzymes trended downward. -Serial EKGs reviewed by myself did not indicate any acute changes -Continue aspirin -Awaiting lipid panel Electrolyte abnormality with hypokalemia -Continue monitor and replete as needed Hyperglycemia -Hemoglobin A1c 5.6 -Discontinue Accu-Cheks sliding scale insulin Elevated liver enzymes, unknown significance -Awaiting follow-up liver enzymes DVT prevention -Sequential compression devices Discharge Planning: Discharge planning once final cultures are available for appropriate antibiotics.
[2018-03-21 10:22] LABS: Chol/HDL Ratio 2.64 Ratio; HDL Cholesterol 40.1 mg/dL (40.0-60.0)
[2018-03-21 10:49] LABS: Albumin 2.5 g/dL (3.4-5.0); Calcium 7.4 mg/dL (8.5-10.1); Carbon Dioxide 22.6 meq/L (21.0-32.0); Potassium 3.7 meq/L (3.5-5.1); Total Protein 5.8 g/dL (6.4-8.2)
[2018-03-22 08:03] VITALS: BP 175/84; PULSE 85; RESP 20; TEMP 99; O2SAT 95
--- NOTE | 2018-03-22 10:15 | P.DS ---
Date of admission: 03/20/18 09:37 Primary care physician: Adry Power MD Attending physician on discharge: Erik Garcia Anticipated date of discharge: 03/22/18 Brief History from admission: 88-year-old female with known history of hyperlipidemia, history of CVA who presented to the hospital because of nausea, vomiting. Patient states that she is in normal state of health until 2 days ago when she started developing profound shaking intermittently. She thought it was from a bad dream and then this morning when she got up at approximate 5 AM she still had the profound shaking. She called her daughter and she asked her to come over. Before the patient's daughter got there the patient had an episode of nausea and vomiting. She did not have any episodes of chest pain, shortness of breath , abdominal pain, diaphoresis. After she vomited she sat on the ground and then her daughter showed up. Her daughter brought her to the hospital for evaluation and patient was found to have some equivocally elevated troponin. Some electrolyte derangement. Rather significant urinary tract infection. Because of those reasons is recommended by the ER physician the patient be admitted for further evaluation and management. DS: Diagnosis - Discharge Diagnosis (1) Rigors Status: Acute (2) Urinary tract infection Status: Acute (3) Troponin level elevated Status: Acute (4) Nausea & vomiting Status: Acute DS: Medications - Discharge Medications Prescriptions: sulfamethoxazole-trimethoprim [Bactrim DS] 1 tab PO Q12H #20 tab DS: Summary Hospital Course: 88-year-old female who was originally presented to the hospital because of nausea vomiting and weakness. Patient was known to have rigors prior to presentation. She had workup done emergency department found to have an elevated troponin level and because of that the ER doctor recommended the patient be admitted for further evaluation and management. Patient continued to have cardiac enzymes trended with significant improvement of her troponin level. EKGs did not indicate any acute abnormality to indicate any acute coronary event. Discussion with the family, they did not want to pursue any provocative testing and/or invasive procedures if needed for the elevated troponin. Patient did have rigors on presentation as well as urinary tract infection. Patient with complicated UTI. Patient was started on Rocephin for empirical antibiotics. Patient continued to have rigors and Levaquin was added. Culture did come back it did show E. coli with resistance to ampicillin. Patient clinically improved during her stay in the hospital. Patient is afebrile at this time. Patient denies any recurrent rigors. Physical therapy evaluated the patient and recommended that patient can go home with home health care physical therapy if patient will accept the care. We will plan discharge home with home health care if can be arranged by case management. - Time Spent with Patient Total time spent providing and/or coordinating discharge services: Greater than 30 minutes - Quality: VTE Deep Vein Thrombosis/Pulmonary Embolism Present on Admission: No Exam Vital signs: Vital Signs 03/21/18 12:00 03/21/18 16:00 03/21/18 17:48 Temperature 98.1 F 100.7 F H 98.6 F Pulse Rate 76 91 H Respiratory Rate 18 18 Blood Pressure 126/57 L 182/81 H 133/84 Pulse Oximetry 97 96 03/21/18 20:42 03/22/18 00:00 03/22/18 08:00 Temperature 99.2 F 99.5 F 99.0 F Pulse Rate 82 93 H 85 Respiratory Rate 18 18 20 Blood Pressure 137/65 145/77 H 175/84 H Pulse Oximetry 97 96 95 Intake & Output 03/21/18 03/22/18 03/22/18 18:59 06:59 18:59 Intake Total 2575 / 2575 365 / 365 240 / 240 Output Total 300 / 300 Balance 2575 / 2575 365 / 365 -60 / -60 Weight 71.7 kg Intake: IV 1999 NS + KCl 20 mEq Inj 1,000 ML @ 1750 / 1750 84 mls/hr IV.CONT .[id number] [facility] Rx#:[id number] Levaquin 750 mg Premix Inj 150 150 / 150 ML @ 100 mls/hr IV.SIG Q24H [facility] Rx#:[id number] Rocephin Inj 1,000 MG In NS Inj 100 / 100 100 ML @ 200 mls/hr IV.SIG Q24H [facility] Rx#:[id number] Oral 575 / 575 365 / 365 240 / 240 Output: Urine 300 / 300 Other: # Voids 3 1 1 # Bowel Movements 0 Results Procedures completed during hospitalization: None Labs on day of discharge: Labs from last 24 hours 03/21/18 03/20/18 04:50 10:35 Sodium 141 Potassium 3.7 Chloride 109 H Carbon Dioxide 22.6 Anion Gap 9 BUN 17 Creatinine 0.72 Estimated GFR 77 L Random Glucose 99 Calcium 7.4 L* Prot Corrected Calcium 8.1 L Total Bilirubin 0.8 AST 35 ALT 30 Alkaline Phosphatase 107 Total Protein 5.8 L D Albumin 2.5 L Triglycerides 77 Cholesterol 106 L LDL Cholesterol, Calc 51 HDL Cholesterol 40.1 Cholesterol/HDL Ratio 2.64 Urine Color Yellow Urine Clarity Cloudy H Urine pH 5.5 Ur Specific [place] 1.025 Urine Protein 100 H Urine Glucose (UA) Negative Urine Ketones 15 H Urine Occult Blood Moderate H Urine Nitrate Positive H Urine Bilirubin Negative Urine Urobilinogen 1.0 Ur Leukocyte Esterase Moderate H Urine RBC 0-3 Urine WBC 51-189 H Urine WBC Clumps Moderate H Ur Squamous Epith Cells 0-5 Ur Transition Epith Cell 1-5 H Urine Bacteria Many H Hyaline Casts 0-3 Granular Casts 1-3 H WBC Casts 1-3 H Micro UA Comment Culture indicated Urine Culture Comments Culture indicated - Impressions ITS Impressions Chest X-Ray 03/20/18 08:20 CONCLUSION: No acute disease Discharge Plan - Discharge Disposition Patient Disposition: /Home Health Service - Discharge Condition Condition: Stable - Discharge Order Discharge Orders: Discharge Order (Routine); Ordered 03/22/18 Ordered By: Rd Mancera - Discharge Details Anticipated Discharge Date: 03/22/18 - Physicians Team Primary Care Provider: Adry Power Attending Provider: Erik Garcia
--- NOTE | 2018-03-22 10:17 | P.DCO ---
- Physical Therapy Order: Evaluate and treat, Improve ambulation, Strength and gait training - Home Health Nursing Order: Medical education, Signs/symptoms of disease process, Nursing assessment with vital signs - Certification I have seen patient Nahomi Hernadez on 03/22/18. My clinical findings support the need for the requested home health care services because: Deconditioned with increased weakness, High risk of falls I certify that my clinical findings support that this patient is homebound because: Unsteady gait/balance, Unsafe to leave home unassisted
== END 2018-03-22 11:35 | disposition home health service (06) ==
LOC: PH3 08:16 → PHED 08:16 → PHEDA 09:37 → INTOOBSV 09:37 → PH3 10:10
PROVIDERS: ADMIT Family Medicine; ATTEND Family Medicine
DX: R73.9 Hyperglycemia, unspecified; E78.5 Hyperlipidemia, unspecified; Z79.899 Other long term (current) drug therapy; R53.1 Weakness; R35.0 Frequency of micturition; R68.89 Other general symptoms and signs; Z82.49 Family history of ischemic heart disease and other diseases of the circulatory system; E87.6 Hypokalemia; B96.20 Unspecified Escherichia coli [E. coli] as the cause of diseases classified elsewhere; R74.8 Abnormal levels of other serum enzymes; R61 Generalized hyperhidrosis; R00.0 Tachycardia, unspecified; Z86.73 Personal history of transient ischemic attack (TIA), and cerebral infarction without residual deficits; N39.0 Urinary tract infection, site not specified; R06.02 Shortness of breath; R11.2 Nausea with vomiting, unspecified; R19.7 Diarrhea, unspecified